=== PATIENT | female | born 1945 | race Caucasian/White ===

== ENCOUNTER → 2020-10-16 | Outpatient (CLI) | payer MEDICARE ==
[~2020-10-16] MED LIST: ASA81 MG; BUSPIRONE HCL15 MG PO; FERROUS SULFAT325 MG PO; LIPITOR10 MG PO; Z.0.PLAVIX75 MG; Z.0.PREVACID30 MG; Z.0.TOPROL XL25 MG; ZESTRIL2.5 MG PO
--- NOTE | 2020-10-16 12:48 | Diagnostic Imaging Report ---
Right shoulder, 2 views INDICATION: ^[id number] ^[id number] ^ACUTE PAIN OF RIGHT SHOULDER Comparison: None available. Discussion: AP internal and external rotation views of the shoulder are negative for grossly displaced fracture or dislocation. Glenohumeral joint space is well maintained. Moderate degenerative change of the acromioclavicular joint is noted. Preserved acromiohumeral distance is noted. Partially visualized lung parenchyma, adjacent osseous structures and soft tissues are unremarkable. IMPRESSION: Negative for grossly displaced fracture or dislocation of the right shoulder. Signed by: Raheem Dee MD on 10/16/2020 12:45 PM
== END ==
LOC: RAD 11:46
PROVIDERS: ATTEND Internal Medicine
DX: M25.511 Pain in right shoulder (principal)

== ENCOUNTER → 2021-03-23 | Outpatient (CLI) | payer MEDICARE | LOC: MAMMO 09:22 | PROVIDERS: ATTEND Internal Medicine | DX: Z12.31 Encounter for screening mammogram for malignant neoplasm of breast (principal) | CPT/HCPCS: 77067 ==

== ENCOUNTER → 2021-04-12 | Outpatient (CLI) | payer MEDICARE | LOC: MAMMO 09:52 | PROVIDERS: ATTEND Internal Medicine | DX: N64.89 Other specified disorders of breast (principal) ==

== ENCOUNTER 2022-06-12 17:31 | Inpatient (IN) | payer MEDICARE ==
[~2022-06-12] VITALS: Ht 162.6 cm; Wt 71.7 kg
[2022-06-12] MEDS ORDERED: SODIUM CHLORIDE 0.9% 1000ML 1,000 ML IV STA (17:44)
[2022-06-12] MEDS ORDERED: SODIUM CHLORIDE 0.9% 1000ML 1,000 ML ONE (18:02)
[2022-06-12] MEDS ORDERED: IOPAMIDOL 370 MG/ML 100 ML INFUS..BTL INJ ONE (18:17)
[2022-06-12] MEDS ORDERED: ONDANSETRON HCL INJ 2MG/ML 2ML 2 MG/ML VIAL IV PRN (19:15)
[2022-06-12] MEDS ORDERED: Morphine 4mg INJECTION 4 MG/ML INJ IV PRN (19:15)
[2022-06-12] MEDS: CIPROFLOXACIN 400 MG/D5W 200ML 200 ML IV SCH (19:28)
[2022-06-12] MEDS: METRONIDAZOLE 500MG/NS 100ML 100 ML IV SCH (20:15)
[2022-06-12] MEDS: SODIUM CHLORIDE 0.9% 1000ML 1,000 ML IV SCH (23:55)
[2022-06-13] VITALS (7 sets, daily range): BP systolic 93–125; BP diastolic 34–87
[2022-06-13] MEDS: METRONIDAZOLE 500MG/NS 100ML 100 ML IV SCH ×2 (06:01→16:23)
[2022-06-13] MEDS: SODIUM CHLORIDE 0.9% 1000ML 1,000 ML IV SCH ×3 (06:01→22:11)
[2022-06-13] MEDS: CIPROFLOXACIN 400 MG/D5W 200ML 200 ML IV SCH ×2 (07:15→20:16)
[2022-06-13 08:09] LABS: BASOPHILS % 0.5 % (0.0-1.0); EOSINOPHILS # (AUTO) 0.1 (0.0-0.4); EOSINOPHILS % 1.7 % (0.0-6.0); HEMATOCRIT 34.6 % (34.2-44.1); HEMOGLOBIN 11.2 g/dL (12.0-16.0); LYMPHOCYTES # (AUTO) 0.8 (1.0-3.2); LYMPHOCYTES % 19.5 % (18.0-39.1); MEAN CORPUSCULAR HEMOGLOBIN 29.4 pg (28-32); MEAN CORPUSCULAR HGB CONC 32.4 g/dL (31-35); MEAN CORPUSCULAR VOLUME 90.8 fL (81-99); MONOCYTES # (AUTO) 0.6 (0.2-0.8); MONOCYTES % 14.7 % (4.4-11.3); NEUTROPHILS # (AUTO) 2.5 (2.1-6.9); NEUTROPHILS % 63.4 % (38.7-80.0); PLATELET COUNT 137 x10e3/uL (140-360); RED BLOOD COUNT 3.81 x10e6/uL (3.6-5.1); RED CELL DISTRIBUTION WIDTH 13.8 % (11.7-14.4)
[2022-06-13 09:13] LABS: ALBUMIN 3.1 g/dL (3.5-5.0); ALBUMIN/GLOBULIN RATIO 1.5 (0.8-2.0); ANION GAP 10.4 mmol/L (8-16); CALCIUM 7.9 mg/dL (8.4-10.2); CREATININE, SERUM 0.71 mg/dL (0.57-1.11); POTASSIUM 3.4 mmol/L (3.5-5.1)
[2022-06-13] MEDS ORDERED: POTASSIUM CHLORIDE 10MEQ EA PO ONE (17:35)
[2022-06-13] MEDS ORDERED: BISACODYL 5 MG TAB EC PO ONE ×2 (23:08→23:30)
[2022-06-14 01:27] VITALS: BP 138/55
[2022-06-14] MEDS: METRONIDAZOLE 500MG/NS 100ML 100 ML IV SCH ×2 (06:05→18:00)
[2022-06-14 06:38] LABS: BASOPHILS % 0.6 % (0.0-1.0); EOSINOPHILS # (AUTO) 0.2 (0.0-0.4); EOSINOPHILS % 2.3 % (0.0-6.0); HEMATOCRIT 38.7 % (34.2-44.1); HEMOGLOBIN 12.8 g/dL (12.0-16.0); LYMPHOCYTES # (AUTO) 1.3 (1.0-3.2); LYMPHOCYTES % 19.3 % (18.0-39.1); MEAN CORPUSCULAR HEMOGLOBIN 29.4 pg (28-32); MEAN CORPUSCULAR HGB CONC 33.1 g/dL (31-35); MONOCYTES # (AUTO) 0.8 (0.2-0.8); MONOCYTES % 12.4 % (4.4-11.3); NEUTROPHILS # (AUTO) 4.2 (2.1-6.9); NEUTROPHILS % 65.1 % (38.7-80.0); PLATELET COUNT 187 x10e3/uL (140-360); RED BLOOD COUNT 4.35 x10e6/uL (3.6-5.1); RED CELL DISTRIBUTION WIDTH 13.9 % (11.7-14.4)
[2022-06-14 06:57] LABS: ANION GAP 13.2 mmol/L (8-16); BLOOD UREA NITROGEN < 5 mg/dL (7-26); CALCIUM 7.9 mg/dL (8.4-10.2); CARBON DIOXIDE 21 mmol/L (22-29); CHLORIDE 109 mmol/L (98-107); CREATININE, SERUM 0.69 mg/dL (0.57-1.11); GLUCOSE 102 mg/dL (74-118); POTASSIUM 3.2 mmol/L (3.5-5.1); SODIUM 140 mmol/L (136-145)
[2022-06-14] MEDS ORDERED: CITRATE OF MAGNESIA 300ML BOTTLE PO ONE ×2 (07:00)
[2022-06-14 07:04] LABS: BUN/CREATININE RATIO 7 (6-25)
[2022-06-14] MEDS: CIPROFLOXACIN 400 MG/D5W 200ML 200 ML IV SCH ×2 (07:48→20:04)
[2022-06-14 08:04] VITALS: BP 142/63
[2022-06-14 08:38] VITALS: BP 142/63
[2022-06-14] MEDS: SODIUM CHLORIDE 0.9% 1000ML 1,000 ML IV SCH (09:53)
[2022-06-14 12:22] VITALS: BP 144/53
[2022-06-14] MEDS ORDERED: FENTANYL CITRATE/PF 100MCG/2 ML INJ ONE (14:13)
[2022-06-14] MEDS ORDERED: MIDAZOLAM HCL 2 MG/2 ML VIAL ONE (14:13)
[2022-06-14] MEDS ORDERED: PROPOFOL IV EMULSION 10 MG/ML 20 ML VIAL ONE (14:29)
[2022-06-14] MEDS ORDERED: HYOSCYAMINE SULFATE 0.5 MG/ML INJ ONE (14:29)
[2022-06-14 17:09] LABS: WBC,FECAL (FECAL LACTOFERRIN) NEGATIVE (NEGATIVE)
[2022-06-14] MEDS ORDERED: POTASSIUM CHLORIDE 20 MEQ TAB CR PO ONE (19:00)
[2022-06-14 20:00] VITALS: BP 115/46
[2022-06-14] MEDS: DICYCLOMINE HCL 10 MG CAP PO SCH (20:32)
[2022-06-14 21:00] VITALS: BP 115/46
[2022-06-15] VITALS (8 sets, daily range): BP systolic 124–145; BP diastolic 42–71
[2022-06-15] MEDS: METRONIDAZOLE 500MG/NS 100ML 100 ML IV SCH ×2 (05:19→17:57)
[2022-06-15 06:49] LABS: ANION GAP 13.3 mmol/L (8-16); BLOOD UREA NITROGEN < 5 mg/dL (7-26); CALCIUM 7.2 mg/dL (8.4-10.2); CARBON DIOXIDE 20 mmol/L (22-29); CHLORIDE 115 mmol/L (98-107); CREATININE, SERUM 0.65 mg/dL (0.57-1.11); GLUCOSE 88 mg/dL (74-118); POTASSIUM 3.3 mmol/L (3.5-5.1); SODIUM 145 mmol/L (136-145)
[2022-06-15 06:51] LABS: BUN/CREATININE RATIO 8 (6-25)
[2022-06-15] MEDS: CIPROFLOXACIN 400 MG/D5W 200ML 200 ML IV SCH ×2 (07:15→19:45)
[2022-06-15] MEDS: DICYCLOMINE HCL 10 MG CAP PO SCH ×3 (08:56→21:23)
[2022-06-15] MEDS: FERROUS SULFATE 325 MG TAB PO SCH (08:56)
[2022-06-15] MEDS: ATORVASTATIN 20 MG TAB PO SCH (08:56)
[2022-06-15] MEDS ORDERED: METOPROLOL TART25 MG PO (10:24)
[2022-06-15] MEDS ORDERED: MIRTAZAPINE15 MG PO (10:24)
[2022-06-15] MEDS ORDERED: ZETIA10 MG PO (10:24)
[2022-06-15] MEDS ORDERED: VITAMIN D3 MA125 MCG (10:24)
[2022-06-15] MEDS ORDERED: SERTRALINE HCL50 MG PO (10:24)
[2022-06-15] MEDS ORDERED: MYSOLINE50 MG PO (10:24)
[2022-06-15] MEDS ORDERED: FENOFIBRIC ACI135 MG PO (10:25)
[2022-06-15] MEDS: PRIMIDONE 50 MG TAB PO SCH (12:00)
[2022-06-15] MEDS: CLOPIDOGREL BISULFATE 75 MG TAB PO SCH (12:27)
[2022-06-15] MEDS: SERTRALINE HCL 50 MG TAB PO SCH (12:27)
[2022-06-15 14:18] LABS: C DIFFICILE TOXIN A&B AMP PROB NEGATIVE (NEGATIVE)
[2022-06-15] MEDS ORDERED: POTASSIUM CHLORIDE 20 MEQ TAB CR PO NR (16:00)
[2022-06-15] MEDS: METOPROLOL TARTRATE 25 MG TAB PO SCH (16:14)
[2022-06-15] MEDS: BUSPIRONE HCL 10 MG TABLET PO SCH (16:15)
[2022-06-15] MEDS ORDERED: CIPRO250 MG PO (16:20)
[2022-06-15] MEDS: [UNRECOGNIZED DRUG - OTHER] PO SCH (21:00)
[2022-06-15] MEDS: MIRTAZAPINE 15 MG TAB PO SCH (21:23)
[2022-06-15] MEDS: EZETIMIBE 10 MG TAB PO SCH (21:23)
[2022-06-16] VITALS (8 sets, daily range): BP systolic 115–156; BP diastolic 42–83
[2022-06-16] MEDS: METRONIDAZOLE 500MG/NS 100ML 100 ML IV SCH ×2 (05:43→17:07)
[2022-06-16] MEDS: CIPROFLOXACIN 400 MG/D5W 200ML 200 ML IV SCH ×2 (07:15→19:15)
[2022-06-16] MEDS: CLOPIDOGREL BISULFATE 75 MG TAB PO SCH (09:06)
[2022-06-16] MEDS: PRIMIDONE 50 MG TAB PO SCH (09:06)
[2022-06-16] MEDS: BUSPIRONE HCL 10 MG TABLET PO SCH ×2 (09:07→17:01)
[2022-06-16] MEDS: METOPROLOL TARTRATE 25 MG TAB PO SCH ×2 (09:08→17:00)
[2022-06-16] MEDS: ATORVASTATIN 20 MG TAB PO SCH (09:08)
[2022-06-16] MEDS: FERROUS SULFATE 325 MG TAB PO SCH (09:09)
[2022-06-16] MEDS: DICYCLOMINE HCL 20 MG TAB PO SCH ×4 (09:09→20:21)
[2022-06-16] MEDS: SERTRALINE HCL 50 MG TAB PO SCH (09:09)
[2022-06-16] MEDS ORDERED: LOPERAMIDE HCL 2 MG CAP PO SCH (10:45)
[2022-06-16 15:59] LABS: BASOPHILS % 0.6 % (0.0-1.0); EOSINOPHILS # (AUTO) 0.2 (0.0-0.4); EOSINOPHILS % 3.7 % (0.0-6.0); HEMATOCRIT 36.6 % (34.2-44.1); HEMOGLOBIN 12.1 g/dL (12.0-16.0); LYMPHOCYTES # (AUTO) 1.6 (1.0-3.2); LYMPHOCYTES % 24.8 % (18.0-39.1); MEAN CORPUSCULAR HEMOGLOBIN 29.5 pg (28-32); MEAN CORPUSCULAR HGB CONC 33.1 g/dL (31-35); MEAN CORPUSCULAR VOLUME 89.3 fL (81-99); MONOCYTES # (AUTO) 0.9 (0.2-0.8); MONOCYTES % 14.5 % (4.4-11.3); NEUTROPHILS # (AUTO) 3.6 (2.1-6.9); NEUTROPHILS % 56.1 % (38.7-80.0); PLATELET COUNT 191 x10e3/uL (140-360); RED CELL DISTRIBUTION WIDTH 14.2 % (11.7-14.4)
[2022-06-16 16:11] LABS: ANION GAP 10.3 mmol/L (8-16); CALCIUM 7.7 mg/dL (8.4-10.2); CREATININE, SERUM 0.72 mg/dL (0.57-1.11); POTASSIUM 3.3 mmol/L (3.5-5.1)
[2022-06-16] MEDS ORDERED: POTASSIUM CHLORIDE 20 MEQ TAB CR PO ONE (17:30)
[2022-06-16] MEDS ORDERED: LOPERAMIDE HCL 2 MG CAP PO PRN (17:45)
[2022-06-16] MEDS: EZETIMIBE 10 MG TAB PO SCH (20:21)
[2022-06-16] MEDS: MIRTAZAPINE 15 MG TAB PO SCH (20:21)
[2022-06-16] MEDS: [UNRECOGNIZED DRUG - OTHER] PO SCH (20:23)
[2022-06-17] VITALS: BP 132/62
[2022-06-17] MEDS ORDERED: CHOLESTYRAMINE 4 GM PACKET PO ONE
[2022-06-17 06:05] VITALS: BP 143/74
[2022-06-17 07:21] LABS: ANION GAP 11.5 mmol/L (8-16); CALCIUM 7.9 mg/dL (8.4-10.2); CREATININE, SERUM 0.65 mg/dL (0.57-1.11); POTASSIUM 3.5 mmol/L (3.5-5.1)
[2022-06-17 08:53] VITALS: BP 141/47
[2022-06-17 08:54] VITALS: BP 143/74
[2022-06-17] MEDS ORDERED: LACTOBACILLUS ACIDOPHILUS CAPSULE PO SCH (09:00)
[2022-06-17] MEDS ORDERED: CHOLESTYRAMINE 4 GM PACKET PO SCH (09:00)
[2022-06-17] MEDS: CIPROFLOXACIN 400 MG/D5W 200ML 200 ML IV SCH (09:52)
[2022-06-17] MEDS: FERROUS SULFATE 325 MG TAB PO SCH (09:52)
[2022-06-17] MEDS: ATORVASTATIN 20 MG TAB PO SCH (09:52)
[2022-06-17] MEDS: DICYCLOMINE HCL 20 MG TAB PO SCH (09:52)
[2022-06-17] MEDS: SERTRALINE HCL 50 MG TAB PO SCH (09:52)
[2022-06-17] MEDS: BUSPIRONE HCL 10 MG TABLET PO SCH (09:52)
[2022-06-17] MEDS: PRIMIDONE 50 MG TAB PO SCH (09:53)
[2022-06-17] MEDS: CLOPIDOGREL BISULFATE 75 MG TAB PO SCH (09:53)
[2022-06-17] MEDS: METOPROLOL TARTRATE 25 MG TAB PO SCH (09:53)
[2022-06-17] MEDS ORDERED: QUESTRAN PACKET4 GM PO (10:25)
[2022-06-17] MEDS ORDERED: DICYCLOMINE HCL10 MG PO (10:26)
[2022-06-17 12:00] VITALS: BP 143/57
[2022-06-17] MEDS ORDERED: ONDANSETRON HCL 4 MG ORAL DISINTEGRATING TAB PO PRN (12:15)
[2022-06-17] MEDS ORDERED: CIPROFLOXACIN 500 MG TAB PO SCH (18:30)
== END 2022-06-17 13:38 | disposition home or self-care (01) | DRG 392 ==
LOC: FSED 17:38 → ERHOLD 19:11 → INTOOBSV 19:11 → MED/SURG3 22:15 → OBSVTOIN 06-14 13:28
PROVIDERS: ADMIT Internal Medicine; ATTEND Internal Medicine
PROC: 0DBN8ZZ Excision of Sigmoid Colon, Via Natural or Artificial Opening Endoscopic (ICD-10-PCS; principal; 2022-06-14 16:05)
DX: K52.9 Noninfective gastroenteritis and colitis, unspecified (principal); K57.30 Diverticulosis of large intestine without perforation or abscess without bleeding; K63.5 Polyp of colon; K64.8 Other hemorrhoids; I25.2 Old myocardial infarction; R15.2 Fecal urgency; I25.10 Atherosclerotic heart disease of native coronary artery without angina pectoris; Z95.1 Presence of aortocoronary bypass graft; E78.5 Hyperlipidemia, unspecified; Z20.822 Contact with and (suspected) exposure to COVID-19
CPT/HCPCS: 36415; 45378; 45380; 45385; 74177; 80048; 80053; 80076; 81003; 83630; 83993; 85025; 87045; 87177; 87328; 87493; 88305; 93005; 96361; 99251; 99284; G0378; J1980; J2250; J2405; J3010; J7030; Q9967